=== PATIENT | male | born 1980 | race Caucasian/White ===

== ENCOUNTER 2017-01-06 07:19 | Day surgery (SDC) | payer BC ==
[2017-01-06] MEDS ORDERED: Propofol 200 MG/20 ML SDV IV ONE (07:20)
[2017-01-06] MEDS ORDERED: Midazolam 1 MG/ML 2 ML SDV IV ONE (07:20)
[2017-01-06] MEDS ORDERED: Lactated Ringers 1,000 ML IV SCH (08:30)
[2017-01-06] MEDS ORDERED: Sodium Chloride 0.9% 10 ML Syringe FLUSH PRN (08:30)
--- NOTE | 2017-01-06 08:41 | PCM.OPNOTE ---
- General Post-Op/Procedure Note Date of Surgery/Procedure: 01/06/17 Operative Procedure(s): c scope Findings: internal hemorrhoids Pre Op Diagnosis: hx of dysplastic polyp and hemorrhoids Post-Op Diagnosis: hemorrhoids Anesthesia Technique: MAC Primary Surgeon: Enrrique Carrasco Anesthesia Provider: [place] Toledo Pathology: none Complications: None Condition: Good Free Text/Narrative:: see dictation
--- NOTE | 2017-01-06 08:41 | PREOP ---
ADMISSION DATE: 01/06/2017 CHIEF COMPLAINT: History of dysplastic colon polyps. HISTORY OF PRESENT ILLNESS: This is a 36-year-old white male who underwent an upper endoscopy. He was found to have a polyp with moderate dysplasia. He notes some occasional bleeding per rectum. Last scope was a year ago and really demonstrated no marked abnormalities. SOCIAL HISTORY: The patient is . He works for [employer]. He never smokes. Has an occasional drink. ALLERGIES: He has no known drug allergies. FAMILY HISTORY: Essentially unremarkable. MEDICATIONS: He is currently on no medications. PROBLEM LIST: Includes a history of colon polyp, internal hemorrhoids, and history of duodenitis. PAST SURGICAL HISTORY: Significant for a history of colonoscopy and appendectomy. REVIEW OF SYSTEMS: GENERALIZED: No complaints. HEENT: No complaints. PULMONARY: No complaints. CARDIAC: No complaints. ABDOMEN: Only noted for the occasional bleeding. MUSCULOSKELETAL: No complaints. NEUROLOGIC: No complaints. PHYSICAL EXAMINATION: GENERAL: This is a well-developed, well-nourished white male, appearing in no acute distress. VITALS: Reviewed, they are stable. He is afebrile. HEENT: Grossly within normal limits. LUNGS: Clear to auscultation. HEART: Regular rate and rhythm. Abdomen: Soft, nontender. ASSESSMENT: History of dysplastic colon polyp, for followup exam. PLAN: Colonoscopy. Procedure and risks were explained to the patient to include bleeding, infection, and perforation. The patient expresses understanding, and he asked us to proceed. /[id number] /MODL
[2017-01-06 10:50] VITALS: BP 134/72
--- NOTE | 2017-01-06 11:06 | OR ---
DATE OF OPERATION: 01/06/2017 SURGEON: Enrrique Carrasco MD PROCEDURE PERFORMED: Colonoscopy. PREOPERATIVE DIAGNOSIS: Personal history of dysplastic colon polyps. POSTOPERATIVE DIAGNOSIS: Hemorrhoids. INDICATIONS FOR PROCEDURE: This is a 36-year-old white male who presents for a followup colonoscopy. He has a history of dysplastic colon polyp on his last colonoscopy and in addition he has had some intermittent bleeding, but has a known history of hemorrhoids. He was offered and accepted a colonoscopy. DESCRIPTION OF PROCEDURE: After an excellent IV sedation was administered, digital rectal exam was performed. No marked abnormality was noted. Flexible colonoscope was inserted and advanced to the cecum without difficulty. The following findings were noted. Ascending colon, unremarkable. Transverse colon, unremarkable. Descending colon, unremarkable. Sigmoid, unremarkable. Rectum, unremarkable anus. Retroflexing the scope, there was evidence of internal hemorrhoids. Colon was deflated. Scope was removed. The patient tolerated the procedure well and was taken to recovery room in good condition. /[id number] JHONNY/RENARD
== END 2017-01-06 09:41 | disposition home or self-care (01) ==
LOC: FB.SDS 07:19
PROVIDERS: ATTEND Surgery
DX: Z12.11 Encounter for screening for malignant neoplasm of colon (principal); K64.8 Other hemorrhoids; Z86.010 Personal history of colon polyps
CPT/HCPCS: 45378; J2250; J2704; J7120

== ENCOUNTER 2021-04-13 08:53 | Emergency (ER) | payer OTHER, BC ==
[2021-04-13] MEDS ORDERED: ceFAZolin 1 GM Vial IVPUSH STA (09:13)
[2021-04-13] MEDS ORDERED: Morphine 4 MG/ML VIAL IVPUSH ONE (09:13)
[2021-04-13] MEDS ORDERED: Diphtheria,Pertussis(Acell),Tetanus Vaccine 0.5 ML Syringe IM ONE (10:48)
[2021-04-13 11:03] VITALS: BP 141/77; PULSE 81
== END 2021-04-13 13:20 | disposition home or self-care (01) ==
LOC: FB.ED 08:53
DX: S61.012A Laceration without foreign body of left thumb without damage to nail, initial encounter (principal); Z23 Encounter for immunization; W27.0XXA Contact with workbench tool, initial encounter; Y99.0 Civilian activity done for income or pay
CPT/HCPCS: 12002; 36415; 73130-LT; 80053; 85025; 85610; 85730; 90471; 90715; 96374; 96375; 99283-25; J0690; J2270